=== PATIENT | male | born 1975 | race Two or more races ===

== ENCOUNTER 2020-09-07 20:00 | Emergency (ER) | payer OTHER ==
[~2020-09-07] VITALS: Ht 182.9 cm; Wt 87.9 kg
[2020-09-07] MEDS ORDERED: famotidine/PF 10 mg/ml inj IV ONE (22:20)
[2020-09-07] MEDS ORDERED: pantoprazole 40 MG vial IV ONE (22:20)
[2020-09-07 22:32] LABS: BASOPHILS # (AUTO) 0.2 X10'3 (0-0.2); BASOPHILS % (AUTO) 1.5 % (0-1); EOSINOPHILS % (AUTO) 0 % (0-6); HEMATOCRIT 45.8 % (42.0-52.0); HEMOGLOBIN 15.5 g/dl (14.0-17.9); LYMPHOCYTES # (AUTO) 1.2 X10'3 (1.1-4.8); LYMPHOCYTES % (AUTO) 10.4 % (21-51); MEAN CORPUSCULAR HGB CONC 33.8 g/dL (33.0-36.5); MEAN CORPUSCULAR VOLUME 88.7 FL (78-98); MEAN PLATELET VOLUME 8.4 FL (7.4-10.4); MONOCYTES # (AUTO) 0.6 X10'3 (0-0.9); MONOCYTES % (AUTO) 4.6 % (2-12); NEUTROPHILS # (AUTO) 9.9 X10'3 (1.8-7.7); NEUTROPHILS % (AUTO) 83.5 % (42-75); PLATELET COUNT 321 X10'3 (140-440); RED BLOOD COUNT 5.17 X10'6 (4.70-6.10); RED CELL DISTRIBUTION WIDTH 13.3 % (11.5-14.5); WHITE BLOOD COUNT 11.8 X10'3 (4.5-11.0)
[2020-09-07 22:47] LABS: ALANINE AMINOTRANSFERASE 37 U/L (12-78); ALBUMIN 3.9 G/DL (3.4-5.0); ALBUMIN/GLOBULIN RATIO 0.8 (1.1-1.5); ALKALINE PHOSPHATASE 107 IU/L (46-116); ANION GAP 16 (8-16); ASPARTATE AMINO TRANSFERASE 23 U/L (10-37); BILIRUBIN,TOTAL 0.3 MG/DL (0.1-1.0); BLOOD UREA NITROGEN 13 MG/DL (7-18); BUN/CREATININE RATIO 11.9 (5.4-32.0); CALCIUM 8.6 MG/DL (8.5-10.1); CHLORIDE 104 MMOL/L (99-107); CREATININE 1.09 MG/DL (0.60-1.10); GLUCOSE 128 MG/DL (70-104); POTASSIUM 3.3 MMOL/L (3.5-5.1); SODIUM 139 MMOL/L (135-145); TOTAL CARBON DIOXIDE 19.4 MMOL/L (24-32); TOTAL PROTEIN 8.7 G/DL (6.4-8.2); eGFR 73 ML/MIN
[2020-09-07 22:58] LABS: TROPONIN I < 0.04 NG/ML (0.0-0.05)
[2020-09-07] MEDS ORDERED: iohexol 350MG/ML 100ml bottle IV ONE (23:03)
[2020-09-08] MEDS ORDERED: potassium Cl 20 mEq SR tablet PO STA (00:04)
[2020-09-08] MEDS ORDERED: FAMO20TA44 PO (00:10)
[2020-09-08] MEDS ORDERED: OMEP20CA15 PO (00:10)
[2020-09-08 00:28] VITALS: BP 127/89
== END 2020-09-08 00:29 | disposition home or self-care (01) ==
LOC: ER 20:01
DX: R10.13 Epigastric pain (principal); R06.02 Shortness of breath; R07.89 Other chest pain; R42 Dizziness and giddiness; G58.8 Other specified mononeuropathies; K21.9 Gastro-esophageal reflux disease without esophagitis; Z79.899 Other long term (current) drug therapy
CPT/HCPCS: 36415; 71045; 71275; 74175; 80053; 83880; 84484; 85025; 85379; 93005; 96374; 96375; 99285; C9113; J3490; Q9967